=== PATIENT | female | born 1975 | race Hispanic/Latino ===

== ENCOUNTER 2024-05-23 16:20 | Emergency (ER) | payer SELFPAY ==
--- OUTSIDE RECORDS SUMMARY | 2024-05-23 16:23 | XMS REPORT | Continuity of Care Document ---
Author Name Unknown Address [address] [facility] [address] [place] [id number] [facility] thconnect Address [address] [facility] [address] [place] [address] Care Team Providers Care Escrow Officer Name Role Phone CARLY FERNANDEZ Attending Clinician Unavailabl KERRIE Mclaughlin Attending Clinician Unavailable ALISIA Attending Clinician Unavailable CHRIS PINA Attending Clinician Unavailable COURTNEY BALL Attending Clinician Unavail able CLAUDIO CROCKER Attending Clinician Unavailable SAKINA GOFF Attending Clinician Unavailable Rodger_Tony Attending Clinician Unavailable Silvio Matos Attending Clinician Unavailab CHI Mckeon Attending Clinician Unavailab ANGELINA Mancera Attending Clinician Unavailable ARMINDA BIGGS Attending Clinician Un available CHRIS PARRISH Attending Clinician Unavailable TAWANA ERICKSON Attending Clinician Unavail able KERRIE ALVARADO Admitting Clinician Unavailable ALISIA Admitting Clinician Unavailable COURTNEY BALL Admitting Clinician Unavail able Aayush Admitting Clinician Unavailable Payers Payer Name Policy Type Policy Number Effective Date Expirati on Date Source [facility] [id number] 2017 00:00:00 Encounters Start Date/Time End Date/Time Encounter Type Admission Type Attending Clinicians Care Facility Care Department Encounter ID Source 2023-05-15 18:12:00 2023-05-15 20:34:00 Emergency ER CARLY FERNANDEZ [facility] [id number] [facility] 2023-05-12 20:19:00 2023-05-15 15:55:00 Inpatient ER KERRIE ALVARADO [facility] [id number] [facility] 2021-11-13 00:00:00 2021-11-13 00:00:00 Outpatient ALESIA DIAMOND [facility] [id number] [facility] 2021-04-13 11:08:00 2021-04-13 11:08:00 Outpatient CHRIS CAMACHO [facility] [id number] [facility] 2021-01-16 00:00:00 2021-01-16 00:00:00 Outpatient PRIV PRIV [id number] [facility] 2021-01-16 00:00:00 2021-01-16 00:00:00 Outpatient PRIV PRIV [id number] [facility] 2021-01-16 00:00:00 2021-01-16 00:00:00 Outpatient PRIV PRIV [id number] [facility] 2021-01-16 00:00:00 2021-01-16 00:00:00 Outpatient PRIV PRIV [id number] [facility] 2020-10-04 04:05:00 2020-10-05 13:00:00 Inpatient ER COURTNEY BALL [facility] [id number] [facility] 2020-05-16 09:34:00 2020-05-16 09:34:00 Outpatient CHRIS CAMACHO [facility] [id number] [facility] 2020-05-10 22:35:00 2020-05-11 01:25:00 Emergency ER CLAUDIO CROCKER [facility] [id number] [facility] 2018-07-27 17:40:00 2018-07-27 18:03:00 Emergency ER SAKINA GOFF [facility] [id number] [facility] 2018-04-07 11:40:00 2018-04-07 11:40:00 Outpatient ACherelle [facility] [id number] [facility] 2018-02-20 11:04:00 2018-02-20 11:04:00 Outpatient MCKENNA HullSilvio javier [facility] [id number] [facility] 2012-10-25 03:16:00 2012-10-25 04:35:00 Emergency ER RENNYCORA CHI [facility] [id number] [facility] 2009-12-23 05:52:00 2009-12-23 07:14:00 Emergency ER ANGELINA DOTSON [facility] [id number] [facility] 2007-12-18 13:27:00 2007-12-18 15:15:00 Emergency ER ARMINDA TAN [facility] [id number] [facility] 2001-11-12 16:33:00 2001-11-12 16:33:00 Outpatient CHRIS AGUILAR [facility] [id number] [facility] 2000-05-31 08:07:00 2000-05-31 11:00:00 Emergency ER TAWANA ERICKSON [facility] [id number] [facility]
[2024-05-23] MEDS ORDERED: dexAMETHasone 10 MG/ML VIAL ONE (16:41)
[2024-05-23] MEDS ORDERED: KETOROLAC 30 MG/ML INJ ONE (16:41)
[2024-05-23] MEDS ORDERED: CYCLOBENZAPRINE 10 MG TAB ONE (16:41)
--- NOTE | 2024-05-23 17:21 | RAD REPORT ---
EXAMINATION: CT LUMBAR SPINE WITHOUT CONTRAST CLINICAL INDICATION: Female, 48 years old. LOWER BACK PAIN TECHNIQUE: Axial CT images were obtained through the lumbar spine in soft tissue and bone windows wit hout intravenous contrast. Coronal and Sagittal reformatted images were created from the data set. One or more of the following dose reduction techniques were used: Automated exposure control, adjustm ent of the mA and/ or kV according to patient size, and/or iterative reconstruction. Unless otherwise specified, incidental findings do not require dedicated imaging follow-up. [id number]. COMPARISON: No prior exam. FINDINGS: For purposes of this dictation, it is assumed that there are 5 non rib-bearing lumbar type vertebrae, and the most caudal fully segmented lumbar vertebra is labeled L5. ALIGNMENT: The lumbar spine demonstrates normal alignment without scoliosis or spondylolisthesis. BONES: No significant soft tissue abnormalities. No aggressive osseous lesions. DISCS: Mild broad-based disc bulge at L4-5 but without significant central spinal stenosis. The neura l foramen also appear grossly patent. LEVELS: No significant spinal canal or neural foraminal stenosis. No visualized abnormality within th e spinal canal. SOFT TISSUE: No soft tissue abnormalities. IMPRESSION: No acute lumbar spine abnormalities.
--- NOTE | 2024-05-23 17:35 | ER ---
Nurse's Notes [facility] Name: Allei Foote Age: 48 yrs Sex: Female : 1975 Arrival Date: 05/23/2024 Time: 16:20 Bed 8 Private MD: Diagnosis: Intervertebral disc disorders with radiculopathy, lumbar region Presentation: 05/23 16:30 Chief complaint: Worsening low back pain that radiates BLE x 2 days. Bent over to pick hb up plastic tub and was unable to stand up straight due to pain. Coronavirus screen: At this time, the client does not indicate any symptoms associated with coronavirus-19. Ebola Screen: No symptoms or risks identified at this time. Initial Sepsis Screen: Does the patient meet any 2 criteria? No. Patient's initial sepsis screen is negative. Does the patient have a suspected source of infection? No. Patient's initial sepsis screen is negative. Risk Assessment: Do you want to hurt yourself or someone else? Patient reports no desire to harm self or others. Onset of symptoms was May 21, 2024. 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 - Infectious Disease History:: Denies. - Social history:: Smoking status: Patient denies any tobacco usage or history of. Screenin:51 [facility] ED Fall Risk Assessment (Adult) History of falling in the last 3 months, cm10 including since admission No falls in past 3 months (0 pts) Confusion or Disorientation No (0 pts) Intoxicated or Sedated No (0 pts) Impaired Gait No (0 pts) Mobility Assist Device Used No (0 pt) Altered Elimination No (0 pt) Score/Fall Risk Level 0 - 2 = Low Risk Oriented to surroundings, Maintained a safe environment, Hourly rounding (assess needs \T\ fall precautionary measures) done. Abuse screen: Denies threats or abuse. Denies injuries from another. Nutritional screening: No deficits noted. Tuberculosis screening: No symptoms or risk factors identified. Assessment: 16:50 General: Appears in no apparent distress. uncomfortable, Behavior is. Pain: Complains cm10 of pain in right hip Pain radiates to right leg Pain currently is 10 out of 10 on a pain scale. Quality of pain is described as sharp, shooting. Neuro: No deficits noted. Level of Consciousness is awake, alert, obeys commands, Oriented to person, place, time, situation, Appropriate for age. Respiratory: No deficits noted. Airway is patent Respiratory effort is even, unlabored, Respiratory pattern is regular, symmetrical. Derm: No deficits noted. Skin is healthy with good turgor, Skin is pink, warm \T\ dry. Musculoskeletal: No deficits noted. Range of motion: intact in all extremities, Reports pain in right leg. 17:22 Reassessment: Patient appears in no apparent distress at this time. Patient and/or cm10 family updated on plan of care and expected duration. Pain level reassessed. Patient is alert, oriented x 3, equal unlabored respirations, skin warm/dry/pink. Vital Signs: 16:30 BP 123 / 101; Pulse 76; Resp 16; Temp 97.9; Pulse Ox 100% on R/A; Pain 10/10; hb 17:22 Pain 8/10; cm10 18:02 BP 104 / 73; Pulse 61; Resp 15; Pulse Ox 100% ; cm10 16:30 Pain Scale: Adult hb 17:22 Pain Scale: Adult cm10 ED Course: 16:23 Patient arrived in ED. ra3 16:23 Qian Camarillo PA-C is PHCP. sb4 16:23 Adonis Gudino MD is Attending Physician. sb4 16:31 Triage completed. hb 16:32 Arm band placed on. hb 16:39 Jeny López, FREDIS is Primary Nurse. cm10 16:52 Patient has correct armband on for positive identification. Bed in low position. Call cm10 light in reach. Side rails up X 1. Provided Education on: ER process and procedures.. Pulse ox on. NIBP on. 17:00 CT Lumbar Spine Wo Con In Process Unspecified. EDMS 18:01 No provider procedures requiring assistance completed. Patient did not have IV access cm10 during this emergency room visit. Administered Medications: 16:49 Drug: Ketorolac IM 30 mg IM once Route: IM; Site: right vastus lateralis; cm10 17:22 Follow up: Response: No adverse reaction; Pain is decreased cm10 16:49 Drug: Dexamethasone IM 10 mg IM once Route: IM; Site: left vastus lateralis; cm10 17:22 Follow up: Response: No adverse reaction; Pain is decreased cm10 16:49 Drug: Cyclobenzaprine PO 10 mg PO once Route: PO; cm10 17:22 Follow up: Pain 8/10 Adult; Response: No adverse reaction; Pain is decreased cm10 18:01 Drug: Hydrocodone-Acetaminophen PO (7.5 mg-325 mg) 1 tabs PO once Route: PO; cm10 18:01 Follow up: Response: Medication administered at discharge. cm10 18:01 Drug: Lidoderm Topical Patch 5 % (700 mg/patch) 1 patches Topical once; leave on for 12 cm10 hours; cover most painful area; may cut into smaller pieces Route: Topical; Site: affected area; 18:01 Follow up: Response: Medication administered at discharge. cm10 Medication: 16:52 VIS not applicable for this client. cm10 Outcome: 17:34 Discharge ordered by . [email or web address] 18:01 Discharged to home ambulatory, with family, cm10 18:01 Condition: good 18:01 Discharge instructions given to patient, Instructed on discharge instructions, follow up and referral plans. medication usage, Demonstrated understanding of instructions, follow-up care, medications, Prescriptions given X 3, 18:02 Patient left the ED. cm10 Signatures: Dispatcher [employer] EDMS Magdalena Samuels, RN Qian Romano, PA-C PAJeny Jones RN RN cm10 Ольга Booker ra3
--- NOTE | 2024-05-23 17:35 | EDPHYS ---
Physician Documentation [facility] Name: Allie Foote Age: 48 yrs Sex: Female : 1975 Arrival Date: 05/23/2024 Time: 16:20 Bed 8 Private MD: ED Physician Adonis Gudino HPI: 05/23 17:16 This 48 yrs old Female presents to ER via Ambulatory with complaints of Back sb4 Pain. 17:16 The patient presents with pain that is acute, and an injury. The symptoms are located sb4 in the low back. Onset: The symptoms/episode began/occurred 2 day(s) ago. The pain radiates to the right leg and left leg. Associated signs and symptoms: Pertinent negatives: dysuria, incontinence, numbness, tingling, vomiting, weakness. The problem was sustained when bending over. Modifying factors: The patient symptoms are alleviated by remaining still, the patient symptoms are aggravated by any movement. 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 - Infectious Disease History:: Denies. - Social history:: Smoking status: Patient denies any tobacco usage or history of. ROS: 17:16 Constitutional: Negative for fever, chills, and weight loss, sb4 17:16 Back: Positive for injury or acute deformity, decreased range of motion, pain at rest, pain with movement, radiated pain, of the lumbar area, 17:16 All other systems are negative, Exam: 17:16 Head/Face: Normocephalic, atraumatic. Eyes: Extra-ocular motions intact. Periorbital sb4 areas with no swelling, redness, or edema. ENT: Mucous membranes moist. Cardiovascular: Regular rate and rhythm with a normal S1 and S2. Respiratory: No increased work of breathing, no retractions or nasal flaring. Abdomen/GI: Soft, non-tender, no distension. Skin: Warm, dry with normal turgor. Normal color with no rashes, no lesions, and no evidence of cellulitis. MS/ Extremity: Pulses equal, no cyanosis. Neurovascular intact. Full, normal range of motion. 17:16 Constitutional: The patient appears alert, awake, uncomfortable, 17:16 Back: pain, that is moderate, ROM is painful, normal spinal alignment noted, CVA tenderness, is absent, vertebral tenderness, is not appreciated, muscle spasm, is not present, 17:16 Neuro: Motor: moves all fours, Sensation: is normal, Gait: is steady, at a normal pace, Vital Signs: 16:30 BP 123 / 101; Pulse 76; Resp 16; Temp 97.9; Pulse Ox 100% on R/A; Pain 10/10; hb 17:22 Pain 8/10; cm10 18:02 BP 104 / 73; Pulse 61; Resp 15; Pulse Ox 100% ; cm10 16:30 Pain Scale: Adult hb 17:22 Pain Scale: Adult cm10 MDM: 16:26 Medical Screening Exam initiated sb4 17:34 Data reviewed: vital signs, nurses notes, radiologic studies, and as a result, I will sb4 discharge patient. Counseling: I had a detailed discussion with the patient and/or guardian regarding the historical points, exam findings, and any diagnostic results supporting the discharge/admit diagnosis, radiology results, the need for outpatient follow up, for definitive care, to return to the emergency department if symptoms worsen or persist or if there are any questions or concerns that arise at home. 08 16:32 Order name: CT Lumbar Spine Wo Con; Complete Time: 17:21 sb4 Administered Medications: 16:49 Drug: Ketorolac IM 30 mg IM once Route: IM; Site: right vastus lateralis; cm10 17:22 Follow up: Response: No adverse reaction; Pain is decreased cm10 16:49 Drug: Dexamethasone IM 10 mg IM once Route: IM; Site: left vastus lateralis; cm10 17:22 Follow up: Response: No adverse reaction; Pain is decreased cm10 16:49 Drug: Cyclobenzaprine PO 10 mg PO once Route: PO; cm10 17:22 Follow up: Pain 8/10 Adult; Response: No adverse reaction; Pain is decreased cm10 18:01 Drug: Hydrocodone-Acetaminophen PO (7.5 mg-325 mg) 1 tabs PO once Route: PO; cm10 18:01 Follow up: Response: Medication administered at discharge. cm10 18:01 Drug: Lidoderm Topical Patch 5 % (700 mg/patch) 1 patches Topical once; leave on for 12 cm10 hours; cover most painful area; may cut into smaller pieces Route: Topical; Site: affected area; 18:01 Follow up: Response: Medication administered at discharge. cm10 Disposition Summary: 05/23/24 17:34 Discharge Ordered Notes: Location: Home sb4 Problem: new sb4 Symptoms: have improved sb4 Condition: Stable sb4 Diagnosis - Intervertebral disc disorders with radiculopathy, lumbar region sb4 Followup: sb4 - With: Private Physician - When: 1 week - Reason: Recheck today's complaints, Re-evaluation by your physician Discharge Instructions: - Discharge Summary Sheet sb4 - Acute Back Pain, Adult sb4 - Herniated Disk sb4 - Back Exercises, [id number] sb4 Forms: - Patient Portal Instructions sb4 - Leadership Thank You Letter sb4 Prescriptions: - Ibuprofen 600 mg Oral Tablet - take 1 tablet ORAL route every 6 hours As needed take with food; 30 tablet; sb4 Refills: 0, Product Selection Permitted - Prednisone 20 mg Oral Tablet - take 2 tablets ORAL route once daily for 5 days; 10 tablet; Refills: 0, Product sb4 Selection Permitted - methocarbamol 750 mg Oral tablet - take 1 tablet ORAL route 4 times per day; 20 tablet; Refills: 0, Product sb4 Selection Permitted Signatures: Dispatcher [employer] Magdalena Mosquera, RN RN Qian Nazario PA-C PA-C sb4 Jeny López, RN RN cm10
[2024-05-23] MEDS ORDERED: HYDROCODONE/APAP 7.5/325 MG TAB ONE (17:51)
[2024-05-23] MEDS ORDERED: LIDOCAINE 4% PATCH ONE (17:51)
[2024-05-23 18:07] VITALS: TEMP 97.9; O2SAT 100
[2024-05-23 18:09] VITALS: BP 104/73
== END 2024-05-23 18:02 | disposition home or self-care (01) ==
LOC: ER 16:20
DX: M51.16 Intervertebral disc disorders with radiculopathy, lumbar region (principal)
CPT/HCPCS: 72131; 96372; 99284; J1100; J2003